=== PATIENT | female | born 1985 | race Caucasian/White ===

== ENCOUNTER → 2020-06-22 | Outpatient (CLI) | payer OTHER | LOC: COL.PUL 03-14 10:00 | DX: R06.02 Shortness of breath (principal) | CPT/HCPCS: J7674 ==

== ENCOUNTER → 2022-01-02 | Outpatient (CLI) | payer OTHER | LOC: COL.RAD 08:41 | DX: M25.511 Pain in right shoulder (principal); R10.11 Right upper quadrant pain ==